=== PATIENT | male | born 1955 | race Asian ===

== ENCOUNTER 2017-10-31 07:45 | Emergency (ER) | payer OTHER ==
[~2017-10-31] VITALS: Ht 157.5 cm; Wt 54.4 kg
[2017-10-31 08:08] VITALS: Ht 157.5 cm; Wt 54.4 kg
[2017-10-31 12:05] VITALS: BP 123/93
== END 2017-10-31 12:05 | disposition home or self-care (01) ==
LOC: ED 07:45
DX: M75.31 Calcific tendinitis of right shoulder (principal); F17.210 Nicotine dependence, cigarettes, uncomplicated; Z71.6 Tobacco abuse counseling
CPT/HCPCS: 99406; J1100; J1885